=== PATIENT | female | born 1970 | race Caucasian/White ===

== ENCOUNTER 2017-03-12 09:18 | Outpatient (CLI) | payer MEDICAID | END 2017-03-12 09:19 | disposition home or self-care (01) | DX: Z13.220 Encounter for screening for lipoid disorders (principal) ==

== ENCOUNTER 2017-09-19 19:52 | Emergency (ER) | payer MEDICAID ==
[2017-09-19 20:30] LABS: BASOPHILS # (AUTO) 0.1 10^3/uL (0.0-0.1); BASOPHILS % (AUTO) 0.5 %; EOSINOPHILS # (AUTO) 0.4 10^3/uL (0.0-0.7); EOSINOPHILS % (AUTO) 2.5 %; HCT - HEMATOCRIT 42.2 % (37.0-47.0); HGB - HEMOGLOBIN 14.1 g/dL (12.0-16.0); LYMPHOCYTES # (AUTO) 2.7 10^3/uL (1.5-3.5); LYMPHOCYTES % (AUTO) 19.2 %; MEAN CORPUSCULAR HEMOGLOBIN 28.2 pg (27.0-31.0); MEAN CORPUSCULAR HGB CONC 33.5 g/dL (32.0-36.0); MEAN CORPUSCULAR VOLUME 84.2 fL (81.0-99.0); MONOCYTES # (AUTO) 0.7 10^3/uL (0.0-1.0); MONOCYTES % (AUTO) 4.8 %; NEUTROPHILS # (AUTO) 10.4 10^3/uL (1.5-6.6); RED BLOOD COUNT 5.01 10^6/uL (4.20-5.40); RED CELL DISTRIBUTION WIDTH 13.8 % (12.0-15.0); UNCORRECTED WHITE BLOOD COUNT 14.2 x10^3/uL; WHITE BLOOD COUNT 14.2 x10^3/uL (4.8-10.8)
--- NOTE | 2017-09-19 20:39 | ED Physician Documentation ---
PD HPI CHEST PAIN - Stated complaint Stated Complaint: CHEST PX - Chief complaint Chief Complaint: Cardiac - History obtained from History obtained from: Patient, Family - History of Present Illness Timing - onset: How many hours ago (1-2 hours [employer]) Timing - onset during: Light activity Timing - details: Abrupt onset Pain level max: 10 Pain level now: 2 Quality: Sharp Location: Other (across lower chest) Radiation: Back Improved by: Other medication (albuterol MDI (spouse's MDI), which seemed to help significantly) Worsened by: Inspiration Associated symptoms: Shortness of air. No: Diaphoresis, Nausea, Vomiting, Palpitations, Cough Similar symptoms before: Has not had sx before Recently seen: Not recently seen - Additional information Additional information: has had approximately 1-2 weeks of sore throat, ROLFER cough, chest congestion. Tonight, approximately 1-2 hours [employer], sudden onset of sharp chest pain across lower chest with dyspnea. Improved significantly en route to ED, particularly after using spouse's albuterol MDI. Review of Systems Constitutional: denies: Fever, Chills, Sweats Throat: reports: Sore throat Cardiac: reports: Chest pain / pressure. denies: Palpitations, Pedal edema, Calf pain Respiratory: reports: Dyspnea, Cough GI: reports: Reviewed and negative PD PAST MEDICAL HISTORY - Past Medical History Past Medical History: No - Past Surgical History Past Surgical History: No - Present Medications Home Medications: Ambulatory Orders Medication Instructions Recorded Confirmed Albuterol Sulf [Ventolin Hfa 1 - 2 puffs INH Q4HR PRN #1 inhaler 09/20/17 Inhaler] - Allergies Allergies/Adverse Reactions: Allergies Allergy/AdvReac Type Severity Reaction Status Date / Time No Known Drug Allergies Allergy Verified 09/19/17 20:02 - Living Situation Living Situation: reports: With spouse/s.o. Living Arrangement: reports: At home PD ED PE NORMAL - Vitals Vital signs reviewed: Yes - General General: Alert and oriented X 3, No acute distress, Well developed/nourished - HEENT HEENT: Moist mucous membranes - Neck Neck: Supple, no meningeal sign - Cardiac Cardiac: RRR, No murmur, No gallop, No rub - Respiratory Respiratory: No respiratory distress, Clear bilaterally - Abdomen Abdomen: Soft, Non tender - Extremities Extremities: No edema - Neuro Neuro: Alert and oriented X 3 Results - Vitals Vitals: Vital Signs - 24 hr 09/19/17 09/19/17 09/19/17 19:59 21:43 22:28 Temperature 36.7 C Heart Rate 80 74 78 Respiratory 14 12 20 Rate Blood Pressure 141/91 H 135/75 H 127/77 O2 Saturation 97 97 97 09/19/17 09/19/17 09/20/17 22:32 23:39 00:15 Temperature 37.0 C 36.6 C Heart Rate 79 76 Respiratory 17 16 Rate Blood Pressure 132/83 H 136/72 H O2 Saturation 98 98 Oxygen O2 Source Room air - EKG (time done) No standard instances Rate: Rate (enter#) (90) Rhythm: NSR [place]: Normal Intervals: Normal AR QRS: Normal Ischemia: Normal ST segments, T wave inversion (II, III, aVF, V4-V6) - Labs Labs: Laboratory Tests 09/19/17 09/19/17 09/19/17 20:23 20:23 20:23 WBC 14.2 H RBC 5.01 Hgb 14.1 Hct 42.2 MCV 84.2 MCH 28.2 MCHC 33.5 RDW 13.8 Plt Count 329 MPV 8.0 Neut # 10.4 H Lymph # 2.7 Mclennan # 0.7 Eos # 0.4 Baso # 0.1 Absolute Nucleated RBC 0.01 Nucleated RBC % 0.0 D-Dimer Sodium 140 Potassium 3.9 Chloride 101 Carbon Dioxide 27 Anion Gap 12.0 BUN 14 Creatinine 0.7 Estimated GFR (MDRD) 90 Glucose 136 H Calcium 9.5 Total Bilirubin 0.2 AST 147 H ALT 103 H Alkaline Phosphatase 80 Troponin I < 0.04 Total Protein 8.0 Albumin 4.3 Globulin 3.7 Albumin/Globulin Ratio 1.2 Lipase 39 09/19/17 20:23 WBC RBC Hgb Hct MCV MCH MCHC RDW Plt Count MPV Neut # Lymph # Mclennan # Eos # Baso # Absolute Nucleated RBC Nucleated RBC % D-Dimer 398.2 H Sodium Potassium Chloride Carbon Dioxide Anion Gap BUN Creatinine Estimated GFR (MDRD) Glucose Calcium Total Bilirubin AST ALT Alkaline Phosphatase Troponin I Total Protein Albumin Globulin Albumin/Globulin Ratio Lipase - Rads (name of study) chest xray Radiology: Prelim report reviewed, See rad report CT chest (PE study) Radiology: Prelim report reviewed, See rad report PD MEDICAL DECISION MAKING - ED course Complexity details: reviewed results, re-evaluated patient, considered differential, d/w patient Departure - Departure Disposition: Home, Self Care Clinical Impression: Chest pain Condition: Good Instructions: ED Chest Pain Atypical Unkn Cause Follow-Up: Trista Myrick ARNP [Primary Care Provider] - Prescriptions: Albuterol Sulf [Ventolin Hfa Inhaler] 1 - 2 puffs INH Q4HR PRN #1 inhaler PRN Reason: Shortness Of Air/Wheezing Discharge Date/Time: 09/20/17 00:16
[2017-09-19 20:44] LABS: ALBUMIN/GLOBULIN RATIO 1.2 (1.0-2.2); BILIRUBIN,TOTAL 0.2 mg/dL (0.2-1.0); CALCIUM 9.5 mg/dL (8.5-10.3); CREATININE 0.7 mg/dL (0.4-1.0); POTASSIUM 3.9 mmol/L (3.5-5.0)
--- NOTE | 2017-09-19 21:02 | XRAY Preliminary Report ---
Exam: XR CHEST 1 VIEW IMPRESSION: Normal single view chest. [facility] SITE ID: [id number]
--- NOTE | 2017-09-19 21:04 | XRAY Report ---
EXAM: CHEST RADIOGRAPHY EXAM DATE: 09/19/2017 08:38 PM. CLINICAL HISTORY: Chest pain. COMPARISON: 09/19/2017 chest x-ray. TECHNIQUE: 1 view. FINDINGS: Lungs/Pleura: No focal opacities evident. No pleural effusion. No pneumothorax. Mediastinum: Within exam limitations, the cardiomediastinal contour is normal. Other: None. IMPRESSION: Normal single view chest. [facility] Referring Provider Line: [phone] SITE ID: [id number]
[2017-09-19] MEDS ORDERED: IOPAMIDOL-300 100 ML VIAL ONE (22:41)
[2017-09-19] MEDS ORDERED: IOPAMIDOL-300 100 ML VIAL IVP ONE (23:16)
--- NOTE | 2017-09-19 23:35 | CT Preliminary Report ---
Exam: CT CHEST ANGIO (PE) IMPRESSION: 1. No pulmonary emboli seen. 2. Heart appears mildly enlarged. Slight hazy opacities in the lungs of uncertain significance. Inter stitial edema not excluded. [facility] SITE ID: [id number]
--- NOTE | 2017-09-19 23:38 | CT Report ---
EXAM: CT ANGIOGRAM CHEST EXAM DATE: 09/19/2017 11:20 PM. CLINICAL HISTORY: Chest pain, dyspnea, elevated d-dimer. COMPARISON: None. TECHNIQUE: Routine helical imaging was performed through the chest in the pulmonary arterial phase. I V Contrast: Nonionic. Reconstructions: Coronal 3-D MIP reconstructions.Sagittal and coronal. In accordance with CT protocol optimization, one or more of the following dose reduction techniques w ere utilized for this exam: automated exposure control, adjustment of mA and/or KV based on patient s ize, or use of iterative reconstructive technique. FINDINGS: Pulmonary Arteries: Diagnostic quality: Adequate through the segmental arteries. No evidence for acute or chronic pulmona ry emboli. No evidence of right heart strain. Lungs/Pleura: Mild hazy opacities in the lungs. Interstitial edema not excluded. No abdulkadir alveolar co nsolidation or pleural effusion. No pneumothorax. Mediastinum: Mild cardiomegaly. No lymphadenopathy. Thoracic Aorta: Unremarkable. Upper Abdomen: Calcified stones in the gallbladder. No obvious cholecystitis. Spleen is not completel y imaged. There may be mild splenomegaly. Other: None. IMPRESSION: 1. No pulmonary emboli seen. 2. Heart appears mildly enlarged. Slight hazy opacities in the lungs of uncertain significance. Inter stitial edema not excluded. [facility] Referring Provider Line: [phone] SITE ID: [id number]
[2017-09-20 00:16] VITALS: BP 136/72
== END 2017-09-20 00:16 | disposition home or self-care (01) ==
LOC: ED 19:52
DX: R07.9 Chest pain, unspecified (principal)
CPT/HCPCS: 36415; 71010; 71275; 80053; 83690; 84484; 85025; 85379; 93005; 99284; Q9967

== ENCOUNTER 2017-09-23 10:30 | Outpatient (CLI) | payer MEDICAID | END 2017-09-23 10:31 | disposition home or self-care (01) | LOC: LAB.R 10:30 | PROVIDERS: ATTEND Nurse Practitioner Family | DX: J02.9 Acute pharyngitis, unspecified (principal) | CPT/HCPCS: 87070 ==

== ENCOUNTER 2017-10-13 12:56 | Outpatient (CLI) | payer MEDICAID ==
[2017-10-13 18:28] LABS: BASOPHILS % (AUTO) 0.4 %; EOSINOPHILS # (AUTO) 0.3 10^3/uL (0.0-0.7); EOSINOPHILS % (AUTO) 3.6 %; HCT - HEMATOCRIT 39.1 % (37.0-47.0); HGB - HEMOGLOBIN 12.9 g/dL (12.0-16.0); LYMPHOCYTES # (AUTO) 2.7 10^3/uL (1.5-3.5); LYMPHOCYTES % (AUTO) 37.2 %; MEAN CORPUSCULAR HEMOGLOBIN 28.5 pg (27.0-31.0); MEAN CORPUSCULAR HGB CONC 33.1 g/dL (32.0-36.0); MEAN CORPUSCULAR VOLUME 86.1 fL (81.0-99.0); MEAN PLATELET VOLUME 8.9 fL (7.9-10.8); MONOCYTES # (AUTO) 0.3 10^3/uL (0.0-1.0); MONOCYTES % (AUTO) 4.3 %; NEUTROPHILS # (AUTO) 3.9 10^3/uL (1.5-6.6); NEUTROPHILS % (AUTO) 54.5 %; RED BLOOD COUNT 4.54 10^6/uL (4.20-5.40); RED CELL DISTRIBUTION WIDTH 13.9 % (12.0-15.0); UNCORRECTED WHITE BLOOD COUNT 7.2 x10^3/uL; WHITE BLOOD COUNT 7.2 x10^3/uL (4.8-10.8)
[2017-10-13 19:14] LABS: ALBUMIN/GLOBULIN RATIO 1.4 (1.0-2.2); BILIRUBIN,TOTAL 0.4 mg/dL (0.2-1.0); CALCIUM 9.3 mg/dL (8.5-10.3); CREATININE 0.8 mg/dL (0.4-1.0); POTASSIUM 3.4 mmol/L (3.5-5.0); TOTAL PROTEIN 7.6 g/dL (6.7-8.2)
[2017-10-13 19:44] LABS: MONO NEG QC NEGATIVE (Negative); MONO POS QC POSITIVE (Positive)
== END 2017-10-13 12:57 | disposition home or self-care (01) ==
LOC: LAB.F 12:56
PROVIDERS: ATTEND Nurse Practitioner Family
DX: R53.83 Other fatigue (principal); R53.1 Weakness
CPT/HCPCS: 36415; 80053; 85025; 86308

== ENCOUNTER 2020-01-18 15:17 | Outpatient (CLI) | payer MEDICAID | END 2020-01-18 23:59 | disposition home or self-care (01) | LOC: LAB.R 15:17 | PROVIDERS: ATTEND Physician Assistant | DX: J02.9 Acute pharyngitis, unspecified (principal) | CPT/HCPCS: 87070 ==

== ENCOUNTER 2022-08-09 07:37 | Outpatient (CLI) | payer MEDICAID ==
[2022-08-09 15:31] LABS: BASOPHILS % (AUTO) 0.5 %; EOSINOPHILS # (AUTO) 0.3 10^3/uL (0.0-0.7); EOSINOPHILS % (AUTO) 4.2 %; HCT - HEMATOCRIT 41.5 % (37.0-47.0); HGB - HEMOGLOBIN 13.4 g/dL (12.0-16.0); LYMPHOCYTES # (AUTO) 2.5 10^3/uL (1.5-3.5); LYMPHOCYTES % (AUTO) 40.8 %; MEAN CORPUSCULAR HEMOGLOBIN 28.7 pg (27.0-31.0); MEAN CORPUSCULAR HGB CONC 32.3 g/dL (32.0-36.0); MEAN CORPUSCULAR VOLUME 88.9 fL (81.0-99.0); MEAN PLATELET VOLUME 10.4 fL (7.9-10.8); MONOCYTES # (AUTO) 0.4 10^3/uL (0.0-1.0); MONOCYTES % (AUTO) 6.3 %; PLT - PLATELET COUNT 342 10^3/uL (130-450); RED BLOOD COUNT 4.67 10^6/uL (4.20-5.40); RED CELL DISTRIBUTION WIDTH 13.8 % (12.0-15.0); WHITE BLOOD COUNT 6.2 x10^3/uL (4.8-10.8)
[2022-08-09 15:53] LABS: ALBUMIN/GLOBULIN RATIO 1.2 (1.0-2.2); ALKALINE PHOSPHATASE 56 IU/L (42-121); ALT ALANINE AMINOTRANSFERASE 28 IU/L (10-60); AST ASPARTATE AMINOTRANSFERASE 16 IU/L (10-42); BILIRUBIN,TOTAL 0.6 mg/dL (0.2-1.0); BUN - BLOOD UREA NITROGEN 12 mg/dL (6-20); CALCIUM 9.2 mg/dL (8.5-10.3); CARBON DIOXIDE - CO2 29 mmol/L (21-32); CHLORIDE 105 mmol/L (101-111); CHOL/HDL RATIO 5.5 (<4.4); CHOLESTEROL 172 mg/dL; CREATININE 0.7 mg/dL (0.4-1.0); GFR - MDRD 89 (>89); GLUCOSE 126 mg/dL (70-100); HDL CHOLESTEROL 31 mg/dL; LDL CHOLESTEROL,CALCULATED 97 mg/dL; LDL/HDL RATIO 3.1 (<4.4); SODIUM 140 mmol/L (135-145); TOTAL PROTEIN 7.3 g/dL (6.7-8.2); TRIGLYCERIDES 222 mg/dL; VLDL CHOLESTEROL 44 mg/dL
[2022-08-09 16:02] LABS: THYROID STIMULATING HORMONE 2.02 uIU/mL (0.34-5.60)
[2022-08-10 03:08] LABS: HCV AB <0.1 s/co ratio (0.0-0.9)
== END 2022-08-09 07:38 | disposition home or self-care (01) ==
LOC: LAB.S 07:37
PROVIDERS: ATTEND Registered Nurse
DX: Z00.00 Encounter for general adult medical examination without abnormal findings (principal); Z13.228 Encounter for screening for other metabolic disorders; Z13.29 Encounter for screening for other suspected endocrine disorder; Z13.0 Encounter for screening for diseases of the blood and blood-forming organs and certain disorders involving the immune mechanism
CPT/HCPCS: 36415; 80053; 80061; 83721; 84443; 85025; 86803

== ENCOUNTER 2022-09-26 08:00 | Outpatient (CLI) | payer MEDICAID ==
--- NOTE | 2022-09-26 11:45 | XRAY Report ---
PROCEDURE: Chest 2 View X-Ray INDICATIONS: PRODUCTIVE COUGH TECHNIQUE: 2 views of the chest were acquired. COMPARISON: Chest x-ray 09/19/2017 FINDINGS: Surgical changes and devices: None. Lungs and pleura: No pleural effusions or pneumothorax. Lungs are clear. Mediastinum: Mediastinal contours are normal. Heart size is normal. Bones and chest wall: No suspicious bony abnormalities. Soft tissues appear unremarkable. IMPRESSION: No acute pulmonary process. Reviewed by: Lorna Carcamo MD on 09/26/2022 11:44 AM [facility] Approved by: Lorna Carcamo MD on 09/26/2022 11:44 AM [facility] Station ID: [id number]
== END 2022-09-26 08:01 | disposition home or self-care (01) ==
LOC: DI.S 08:00
PROVIDERS: ATTEND Physician Assistant Medical
DX: J02.9 Acute pharyngitis, unspecified (principal)
CPT/HCPCS: 87070

== ENCOUNTER 2023-02-04 07:26 | Outpatient (CLI) | payer MEDICAID ==
[2023-02-04 15:04] LABS: THYROID STIMULATING HORMONE 2.46 uIU/mL (0.34-5.60)
[2023-02-04 15:15] LABS: FOLATE 21.79 ng/mL (5.90 - >24.8)
== END 2023-02-04 07:27 | disposition home or self-care (01) ==
LOC: LAB.S 07:26
PROVIDERS: ATTEND Psychiatry & Neurology Neurology
DX: R20.2 Paresthesia of skin (principal)
CPT/HCPCS: 36415; 82607; 82746; 84443

== ENCOUNTER 2023-04-11 13:21 | Outpatient (CLI) | payer MEDICAID ==
[~2023-04-11 13:21] MED LIST: GADOBUTROL 15 MMOL/15 ML VIAL ONE
[2023-04-11] MEDS ORDERED: GADOBUTROL 15 MMOL/15 ML VIAL IVP ONE (14:55)
--- NOTE | 2023-04-11 17:13 | MRI Report ---
PROCEDURE: BRAIN W/WO INDICATIONS: PARAESTHESIAS CONTRAST: GADAVIST 10.8 ML TECHNIQUE: Noncontrast axial T1 spin echo, axial T2 fast spin echo, sagittal and axial FLAIR, coronal T2 fast sp in echo, axial gradient echo, axial diffusion and ADC through the brain. After the administration of contrast, axial and coronal T1 spin echo with fat saturation through the brain. COMPARISON: None. FINDINGS: Image quality: Excellent. CSF spaces: Basal cisterns are patent. No extra-axial fluid collections. Ventricles are normal in size and shape. Brain: No midline shift. No intracranial bleeds or masses. No abnormal intracranial enhancement. There is cerebral volume loss for age. There is periventricular white matter chronic small vessel is chemic change. The brainstem appears normal. Diffusion-weighted images demonstrate no acute ischemi c insults. No chronic ischemic insults. Normal intravascular flow voids are present. Skull and face: Calvarial marrow is normal in signal. Orbits appear normal. Sinuses: Sinuses and mastoids appear clear. IMPRESSION: 1. No acute intracranial process. Reviewed by: Lorna Carcamo MD on 04/11/2023 5:12 PM PDT Approved by: Lorna Carcamo MD on 04/11/2023 5:12 PM PDT Station ID: [id number]
== END 2023-04-11 13:22 | disposition home or self-care (01) ==
LOC: DI 13:21
PROVIDERS: ATTEND Psychiatry & Neurology Neurology
DX: R20.2 Paresthesia of skin (principal)
CPT/HCPCS: 70553; A9585

== ENCOUNTER 2023-05-26 10:02 | Outpatient (CLI) | payer MEDICAID ==
--- NOTE | 2023-05-26 11:42 | SLEEP CARE CONSULTATION ---
Information from patient questionnaire entered by Kuldeep Kan. I have reviewed and concur with the information entered by Kuldeep Kan. This document represents the service I personally performed and the decisions made by me, Liana Wade MD, [facility] [place]. History of Present Illness Service Date and Time: 05/26/2023 1002 Reason for Visit: New patient Chief Complaint: reports: Unrefreshed sleep, Snoring, Excessive daytime sleepiness, Observed pauses in breathing, Fatigue, Frequent awakenings at night Date of Onset: 3YRS Usual bedtime: 1030PM Time it takes to fall asleep: 30MIN Snores at night: Yes Observed to quit breathing while asleep: Yes Sleeps alone due to snoring: No Number of times waking at night: 3-6 Reasons for waking at night: reports: Snoring, Gasping for air, Bathroom Toss, Turn, or Twitch while sleeping: Yes Recalls having dreams: No Usually gets out of bed at: 730AM Feels refreshed in the morning: No Morning headache: No Sleepy or fatigued during the day: Yes Ever fallen asleep while driving: No Takes day naps: Yes Dreams during day naps: No Additional HPI information: I have the pleasure of seeing Ms. Weaver today regarding the possibility of her having obstructive sleep apnea. As you know, she is a 52-year-old lady who complains of loud snore, observed apneas, frequent awakenings, unrefreshed sleep, persistent fatigue, and excessive daytime sleepiness. Her neurologist recommends a sleep study. The patient tells me that she normally goes to bed around 10:30 pm, and it takes her approximately 30 minutes to fall asleep. She has been told that she snores loudly and irregularly at night. She has also been observed to stop breathing in her sleep. Her can still sleep in the same bed. She can recall waking up on the average of 3 - 6 times during the night. Most of the time she wakes up because of having to use the bathroom. She has awakened occasionally because of her own snoring, choking, and having to gasp for air. There is a lot of tossing and turning in her sleep. No somniloquy (sleep talking) or somnambulism (sleep walking). Generally, there is no recollection of dreams. In the morning she usually gets up out of the bed around 7:30 a.m. not feeling refreshed nor rested. She usually does not have a morning headache. During the day she complains of feeling sleepy and fatigued. Her score on [place] Sleepiness Scale is 18 out of 24. She has never fallen asleep while driving nor has had any accident due to sleepiness. She usually takes naps during the day. She has never had sleep paralysis, experienced crys plexy but complains of symptoms of restless leg syndrome. She reports having impaired concentration during the day. - Parasomnia Symptoms Ever been unable to move upon waking from sleep: No Walks in sleep: No Talks in sleep: No Ever acted out dreams in sleep: No Ever felt weak in the knees when startled or emotional: No Bothered by creepy, crawly, restless sensations in legs: Yes Problems with memory or concentration: Yes Subjective Initial [place] Sleepiness Scale score: 23 (05/26/23) Social History The patient's occupation is a TEACHER. Patient is and lives in [place]. Have you smoked in the past 12 months: No Alcohol use: No Caffeine use: Yes Caffeine amount and frequency: 24OZ DAILY Family History Family history of sleep disordered breathing: No Allergies and Home Medications Known drug allergies: No Drug allergies reviewed: Yes Home medication list reviewed: Yes Allergy and home medication list: Allergies No Known Drug Allergies Allergy (Verified 05/23/23 08:34) Review of Systems Weight gain over past 5 years: 50 Cardiovascular: reports: leg or foot swelling Respiratory: reports: shortness of breath Gastrointestinal: reports: diarrhea Urinary: reports: frequency, urgency Neurological: reports: headaches Ear/Nose/Throat: reports: dry mouth/throat, wisdom teeth removed Endocrine: reports: sluggishness, too hot or cold, excessive thirst, increased urination, unexplained weakness Musculoskeletal: reports: joint pain, joint swelling, muscle pain or cramping Physical Exam Vital signs obtained and entered by: KULDEEP Ha MA Blood Pressure: 124/78 (LEFT ARM) Cuff size: regular Heart Rate: 81 O2 Saturation: 97 Height: 5 ft 5 in Weight: 250 lb Body Mass Index: 41.5 BMI Classification: Morbidly Obese Neck circumference: 16.75 Mood/affect: Normal. HEENT: No craniofacial malformation Nostrils: patent to airflow Turbinates: normal Septum: midline Mouth and throat: narrow oropharynx Soft palate: long Hard palate: normal Uvula: normal Uvula visualization: 50% Mallampati Class II Tongue: normal in size Tonsils: small Chin and jaw: normal size and position Neck: normal w/o lymphadenopathy or thyromegaly Heart: regular rate and rhythm Lungs: clear bilaterally Extremities: no edema or clubbing Neurologic: intact Impression and Plan IMPRESSION: 1. Obstructive Sleep Apnea-Hypopnea Syndrome, as evident by history of loud and irregular snoring, observed cessation of breath while asleep, frequent awakenings during the night, unrefreshed sleep, cognitive impairment, and daytime hypersomnolence. Narrow oropharynx and obesity are common predisposing factors for obstructive sleep apnea-hypopnea syndrome. I recommend proceeding to polysomnography to confirm the diagnosis and to assess severity. If she has significant sleep disordered breathing, a manual CPAP titration study will also be performed to find the optimal treatment pressure. I informed the patient of what the sleep studies involve and after some discussion, she agreed to proceed. Plan: 1. Schedule polysomnography +/- manual CPAP titration study and return in 1 to 2 weeks after the study to discuss result and initiate therapy. 2. Avoid long distance driving or when feeling sleepy. 3. Avoid alcohol, sedatives, and muscle relaxants around bedtime. 4. Attempt to lose weight. Counseling Topics: Weight control Follow up with Sleep Care in: 1-2 months Visit Type: In Office Time Spent with Patient (minutes): 15 Provider Statement: I spent 100% of the Face to Face Visit with the patient with greater than 50% spent counseling the patient and coordination of care.
[2023-05-26 11:43] VITALS: BP 124/78
== END 2023-05-26 10:03 | disposition home or self-care (01) ==
LOC: SC 10:02
PROVIDERS: ATTEND Internal Medicine Pulmonary Disease
DX: G47.10 Hypersomnia, unspecified (principal); R44.8 Other symptoms and signs involving general sensations and perceptions; R41.89 Other symptoms and signs involving cognitive functions and awareness; R06.83 Snoring; G47.8 Other sleep disorders; R06.81 Apnea, not elsewhere classified; E66.01 Morbid (severe) obesity due to excess calories; Z68.41 Body mass index [BMI] 40.0-44.9, adult
CPT/HCPCS: 99202; 99212

== ENCOUNTER 2023-06-22 19:34 | Outpatient (CLI) | payer MEDICAID | END 2023-06-22 19:35 | disposition home or self-care (01) | LOC: SC 19:34 | PROVIDERS: ATTEND Internal Medicine Pulmonary Disease | DX: G47.33 Obstructive sleep apnea (adult) (pediatric) (principal) | CPT/HCPCS: 95810 ==

== ENCOUNTER 2023-07-16 15:58 | Outpatient (CLI) | payer MEDICAID ==
--- NOTE | 2023-07-16 15:57 | SLEEP CARE CONSULTATION ---
Information from patient questionnaire entered by Yenny Kan. I have reviewed and concur with the information entered by Yenny Kan. This document represents the service I personally performed and the decisions made by me, Tori Dodd ARNP. History of Present Illness Service Date and Time: 07/16/2023 1540 Initial [place] Sleepiness Scale score: 23 (05/26/23) Current [place] Sleepiness Scale score: 19 (07/16/23) Additional HPI information: AMANDA OTT returns via video telehealth visit for follow up and results of the recently performed polysomnography. Her sleep study showed moderate obstructive sleep apnea with an average AHI of 28.2 and savage oxygen saturation of 76%. I explained the pathophysiology behind obstructive sleep apnea. We then spent quite a bit of time discussing different treatment options. For mild obstructive sleep apnea, surgery and oral appliance are alternatives to nasal CPAP therapy but in moderate or severe cases, nasal CPAP is the most effective and reliable treatment. I reviewed the impact of weight changes on sleep apnea and strongly recommended losing weight. After some discussion, the patient opted to go with the nasal CPAP therapy. Nasal autoCPAP set at 4-15 cmH20 will be ordered with rationale explained. A manual titration study will be ordered if unable to find optimal pressure with office adjustments. I explained how CPAP machine works and what to expect when using the machine. Using CPAP every night in order to get used to it was emphasized. Patient advised to put CPAP mask on before getting into bed so as not to fall asleep without CPAP. To assist acclimation to CPAP use, it could also be used for a short time during day while reading or watching TV. The patient was instructed to call the CPAP supplier to discuss any mechanical problem that may occur. If the mask given is uncomfortable or is difficult to keep on through the night even with adjustment, contact the CPAP supplier as many will replace with another mask style if notified before 30 days. If snoring or perceives is not getting enough air or too much air from the machine, notify this office. Patient does not drink alcohol. Patient was cautioned about risks of drowsy driving unt il sleepiness symptoms resolve. Patient denies drowsy driving. Sleep Study - Results Type of Sleep Study: Polysomnography (COMPLETED 06/22/23) Polysomnography/Home Sleep Study results: IMPRESSION: The quality of the study is good. The patient had reduced sleep efficiency due to frequent awakenings during the night. Despite moderate sleep fragmentation, the sleep architecture was relatively normal. Respiratory monitoring showed moderate obstructive sleep apnea-hypopnea (AHI = 28.2) associated with frequent arousals, oxyhemoglobin desaturation and moderate hypoxia (savage oxygen saturat ion of 76%). The respiratory events occurred independently of sleep stage and body position (supine AHI = 34.6; non-supine = 26.84). Snore was moderate to loud in intensity. There was no significant periodic leg movement of sleep. Cardiac rhythm was normal sinus rhythm without significant arrhythmia. No abnormal behavior (parasomnia) observed during the night. Allergies and Home Medications Known drug allergies: No Drug allergies reviewed: Yes Home medication list reviewed: Yes Allergy and home medication list: Allergies No Known Drug Allergies Allergy (Verified 07/15/23 11:52) Home Medications Medication Instructions Recorded Confirmed Last Taken Type Albuterol Sulf [Ventolin Hfa 1 - 2 puffs INH Q4HR PRN #1 inhaler 09/20/17 07/16/23 Unknown Rx Inhaler] Empagliflozin [Jardiance] See Rx Instructions .ROUTE .COMPLEX 07/16/23 07/16/23 Unknown History Metformin HCl See Rx Instructions .ROUTE .COMPLEX 07/16/23 07/16/23 Unknown History Review of Systems Review of systems same as previous: Yes (no changes) Physical Exam Vital signs obtained and entered by: YENNY Ha MA Blood Pressure: 131/87 (PER PT) Heart Rate: 77 (PER PT) Height: 5 ft 4 in (PER PT) Weight: 240 lb (PER PT) Body Mass Index: 41.1 BMI Classification: Morbidly Obese Impression and Plan 1. Obstructive Sleep Apnea-Hypopnea Syndrome, moderate, with lowest oxygen saturation of 76%. Obviously this is the cause of the patients symptoms of unrefreshed sleep, and excessive daytime sleepiness. As mentioned above, the patient will be started on nasal autoCPAP therapy with pressure set at 4-15 cmH2 O. A manual titration study will be completed if unable to find optimal treatment pressure with office adjustments. Compliance guidelines also reviewed. A copy of compliance guidelines will be given for reference at check out. She was advised to elevate her head to reduce apneas until able to use a CPAP. She voiced understanding. 2. Hypoxemia, moderate, with a savage oxygen saturation of 76% and 19.5 minutes spent under 90%. Her baseline oxygen saturation was normal with an average oxyg en saturation of 93%. 3. Obesity, unspecified. Currently patients BMI is 41.1. Obesity increases the risk of apnea, CPAP pressure requirements and overall health risks especially cardiovascular and diabetes. Thus patient is advised to lose weight. * Nasal auto CPAP therapy, pressure at 4-15 cm H2O. * Attempt to lose weight. * Avoid alcohol consumption near bedtime. * Avoid supine sleep until using CPAP. * The patient is again cautioned about driving until sleepiness completely resolves. * Return one month after CPAP obtained. I will assess response to therapy and compliance at that time. Counseling Topics: Weight loss health impact Prescriptions: Auto CPAP Visit Type: Telehealth Video Video Type: Doximity Patient Location: Home Location of Provider: Office Patient agrees and consents to this telehealth visit type: Yes Patient agrees to have their insurance billed: Yes Time Spent with Patient (minutes): 23 Provider Statement: I spent 100% of the Telehealth Video Call with the patient with greater than 50% spent counseling the patient and coordination of care.
[2023-07-16 16:39] VITALS: BP 131/87
== END 2023-07-16 15:59 | disposition home or self-care (01) ==
LOC: SC 15:58
PROVIDERS: ATTEND Nurse Practitioner Family
DX: G47.33 Obstructive sleep apnea (adult) (pediatric) (principal); R09.02 Hypoxemia; E66.8 Other obesity; Z68.41 Body mass index [BMI] 40.0-44.9, adult

== ENCOUNTER 2023-10-31 15:04 | Outpatient (CLI) | payer MEDICAID ==
--- NOTE | 2023-10-31 15:53 | Sleep Patient Instructions ---
Sleep Center Visit Summary - Patient Visit Information Reason for Visit: First Compliance with new CPAP - Patient Instructions Additional Instructions: You were here for follow up of CPAP therapy. You will be continued on CPAP therapy with pressure at 10-12 cmH2O. Please let us know if the pressure change is uncomfortable and we can make further adjustments of the pressure. You should follow up with sleep care in 1-2 months. You may contact us sooner for any questions or concerns. - Clinic Information Contact: [facility] [address] [place] [address] [email or web address] T: [phone]
--- NOTE | 2023-10-31 15:57 | SLEEP CARE CONSULTATION ---
Information from patient questionnaire entered by Kuldeep Kan. I have reviewed and concur with the information entered by Kuldeep Kan. This document represents the service I personally performed and the decisions made by me, Tori Dodd ARNP. History of Present Illness Service Date and Time: 10/31/2023 1504 Previous diagnosis: Moderate, Obstructive Sleep Apnea-Hypopnea Syndrome AHI: 28.2 (06/2023) Reason for follow up: first compliance Equipment type: CPAP (RESMED Airsense 11; s/u111/2022, NEED MACHINE) Equipment obtained from: [employer] (getting supplies) Mask style: Nasal Mask brand: Resmed ([id number]) Backup mask available: No (will keep old mask when replaced) Last cushion change: 1 month + Type of Sleep Study: Polysomnography (COMPLETED 06/22/23) HPI additional information: AMANDA OTT was diagnosed to have moderate, AHI 28.2, obstructive sleep apnea-hypopnea syndrome and returned today for CPAP therapy first compliance follow-up. Sleep Study - Results Type of Sleep Study: Polysomnography (COMPLETED 06/22/23) CPAP Compliance Data - Data Reviewed with Patient Average duration of nightly device use: 6 hours 28 minutes Compliance rate %: 87 (29/30 days used) Current pressure setting (cmH2O): 4-15 (median 7.6, avg 10, max 11.4) Average residual AHI: 1.5 Central apnea: 0 Obstructive apnea: 1.1 Average large leak: 2.5 L/min Subjective Missed days of use due to: reports: family emergency, illness Patient concerns: reports: mask discomfort, condensation in mask/hose, nasal congestion (from her cold). denies: aerophagia, air blowing in eyes, mask leak noise, dry mouth, nose, throat, epistaxis Observed to snore while using device: No Current pressure setting perceived as: comfortable On therapy, patient: reports: sleeping better, awakening more refreshed, being more awake and alert during the day, more rested overall. denies: drowsiness while driving Initial [place] Sleepiness Scale score: 23 (05/26/23) Current [place] Sleepiness Scale score: 23 (10/31/23) Allergies and Home Medications Known drug allergies: No Drug allergies reviewed: Yes Home medication list reviewed: Yes (Metformin) Allergy and home medication list: Allergies No Known Drug Allergies Allergy (Verified 10/30/23 10:47) Home Medications Medication Instructions Recorded Confirmed Last Taken Type Albuterol Sulf [Ventolin Hfa 1 - 2 puffs INH Q4HR PRN #1 inhaler 09/20/17 10/31/23 Unknown Rx Inhaler] Empagliflozin [Jardiance] See Rx Instructions .ROUTE .COMPLEX 07/16/23 10/31/23 Unknown History Metformin HCl See Rx Instructions .ROUTE .COMPLEX 07/16/23 10/31/23 Unknown History Review of Systems Review of systems same as previous: Yes (NO CHANGE) Physical Exam Vital signs obtained and entered by: KULDEEP Ha MA Blood Pressure: 141/91 (RIGHT ARM) Cuff size: regular Heart Rate: 80 O2 Saturation: 98 Height: 5 ft 4 in Weight: 253 lb Body Mass Index: 43.4 BMI Classification: Morbidly Obese Impression and Plan 1. Obstructive Sleep Apnea-Hypopnea Syndrome, moderate, with good treatment compliance and good apnea control. On CPAP therapy, the patient has better sleep quality and is more rested overall. Patient has significant improvement of her sleep apnea with minimal issues. The patients pressure will be changed to autoCPAP 10-12 cmH20 to reflect pressure being used. Patient advised to contact me if pressure change is uncomfortable so that it can be adjusted. Goals for apnea control discussed. Patient's apnea severity and rationale for treatment to reduce apnea, improve sleep quality and reduce cardiovascular and cerebrovascular events was reviewed. 2. Obesity, unspecified. Currently patients BMI is 43.4. Obesity increases the risk of apnea, CPAP pressure requirements and overall health risks especially cardiovascular and diabetes. Thus patient is advised to lose weight. * Change auto CPAP pressure to 10-12 cmH2O * Notify me if snoring with mask or feeling that the pressure is too much or too little * Attempt to lose weight * Call this office if any problems using CPAP * Return for follow up in 1-2 months, or sooner if concerns arise Counseling Topics: Spare mask, Weight loss health impact Follow up with Sleep Care in: 1-2 months Visit Type: In Office Time Spent with Patient (minutes): 23 Provider Statement: I spent 100% of the Face to Face Visit with the patient with greater than 50% spent counseling the patient and coordination of care.
[2023-10-31 16:00] VITALS: BP 141/91; O2SAT 98
== END 2023-10-31 15:05 | disposition home or self-care (01) ==
LOC: SC 15:04
PROVIDERS: ATTEND Nurse Practitioner Family
DX: G47.33 Obstructive sleep apnea (adult) (pediatric) (principal); E66.01 Morbid (severe) obesity due to excess calories; Z68.41 Body mass index [BMI] 40.0-44.9, adult
CPT/HCPCS: 99212; 99213

== ENCOUNTER 2024-01-02 16:50 | Outpatient (CLI) | payer MEDICAID ==
--- NOTE | 2024-01-02 16:47 | SLEEP CARE CONSULTATION ---
Information from patient questionnaire entered by Yenyn Kan. I have reviewed and concur with the information entered by Yenny Kan. This document represents the service I personally performed and the decisions made by , Tori Dodd ARNP. History of Present Illness Service Date and Time: 01/02/2024 1620 Previous diagnosis: Moderate, Obstructive Sleep Apnea-Hypopnea Syndrome AHI: 28.2 (06/2023) Reason for follow up: other (2 MONTH F/U) Equipment type: CPAP (RESMED Airsense 11; s/u 09/2023) Equipment obtained from: [employer] ([employer] supplies) Mask style: Nasal (over the nose) Backup mask available: No Last cushion change: 3 months+ Type of Sleep Study: Polysomnography (COMPLETED 06/22/23) HPI additional information: AMANDA OTT was diagnosed to have moderate, AHI 28.2, obstructive sleep apnea-hypopnea syndrome and returns via video appointment today for CPAP therapy two month follow-up. Sleep Study - Results Type of Sleep Study: Polysomnography (COMPLETED 06/22/23) CPAP Compliance Data - Data Reviewed with Patient Average duration of nightly device use: 8 HRS 17 MINS Compliance rate %: 100 (11/01/23-12/30/23; 60/60 days used) Current pressure setting (cmH2O): 10-12 Average residual AHI: 0.3 Central apnea: 0 Obstructive apnea: 0.1 Hypopnea: 0.1 Average large leak: 0.3 L/min Subjective Patient concerns: reports: mask leak noise. denies: aerophagia, mask discomfort, air blowing in eyes, condensation in mask/hose, nasal congestion, dry mouth, nose, throat, epistaxis Observed to snore while using device: No Current pressure setting perceived as: comfortable On therapy, patient: reports: sleeping better, awakening more refreshed, being more awake and alert during the day, more rested overall. denies: drowsiness while driving Initial [place] Sleepiness Scale score: 23 (05/26/23) Current [place] Sleepiness Scale score: 12 (01/02/24) Allergies and Home Medications Known drug allergies: No Drug allergies reviewed: Yes Home medication list reviewed: Yes (no changes) Allergy and home medication list: Allergies No Known Drug Allergies Allergy (Verified 12/31/23 12:09) Review of Systems Review of systems same as previous: Yes (no changes) Physical Exam Vital signs obtained and entered by: YENNY Ha MA Blood Pressure: 127/85 (PER PT) Height: 5 ft 4 in (PER PT) Weight: 230 lb (PER PT) Body Mass Index: 39.4 BMI Classification: Obese Impression and Plan 1. Obstructive Sleep Apnea-Hypopnea Syndrome, moderate, with good treatment compliance and good apnea control. On CPAP therapy, the patient has better sleep quality and is more rested overall. Patient has significant improvement of her sleep apnea and has no concerns or complaints today. Patient is comfortable using her CPAP and does not feel she needs to come in very soon so we will put her out for 6-month follow-up. Patient's apnea severity and rationale for treatment to reduce apnea, improve sleep quality and reduce cardiovascular and cerebrovascular events was reviewed. 2. Obesity, unspecified. Currently patients BMI is 39.4. Obesity increases the risk of apnea, CPAP pressure requirements and overall health risks especially cardiovascular and diabetes. Thus patient is advised to lose weight. * Continue auto CPAP pressure at 10-12 cmH2O * Notify me if snoring with mask or feeling that the pressure is too much or too little * Attempt to lose weight * Call this office if any problems using CPAP * Return for follow up in 6 months, or sooner if concerns arise Counseling Topics: Weight loss health impact Follow up with Sleep Care in: 6 months Visit Type: Telehealth Video Video Type: Krupa Patient Location: Home Location of Provider: Office Patient agrees and consents to this telehealth visit type: Yes Time Spent with Patient (minutes): 22 Provider Statement: I spent 100% of the Telehealth Video Call with the patient with greater than 50% spent counseling the patient and coordination of care.
[2024-01-02 16:59] VITALS: BP 127/85
== END 2024-01-02 16:51 | disposition home or self-care (01) ==
LOC: SC 16:50
PROVIDERS: ATTEND Nurse Practitioner Family
DX: G47.33 Obstructive sleep apnea (adult) (pediatric) (principal); E66.9 Obesity, unspecified; Z68.39 Body mass index [BMI] 39.0-39.9, adult
CPT/HCPCS: 99212; 99213

== ENCOUNTER 2024-06-11 11:13 | Outpatient (CLI) | payer MEDICAID ==
[2024-06-11 15:10] LABS: BASOPHILS % (AUTO) 0.5 %; EOSINOPHILS # (AUTO) 0.3 10^3/uL (0.0-0.7); EOSINOPHILS % (AUTO) 3.9 %; HCT - HEMATOCRIT 40.2 % (37.0-47.0); HGB - HEMOGLOBIN 12.8 g/dL (12.0-16.0); LYMPHOCYTES # (AUTO) 2.3 10^3/uL (1.5-3.5); LYMPHOCYTES % (AUTO) 35.4 %; MEAN CORPUSCULAR HEMOGLOBIN 28.5 pg (27.0-31.0); MEAN CORPUSCULAR HGB CONC 31.8 g/dL (32.0-36.0); MEAN CORPUSCULAR VOLUME 89.5 fL (81.0-99.0); MEAN PLATELET VOLUME 10.5 fL (7.9-10.8); MONOCYTES # (AUTO) 0.5 10^3/uL (0.0-1.0); MONOCYTES % (AUTO) 7.2 %; NEUTROPHILS # (AUTO) 3.3 10^3/uL (1.5-6.6); NEUTROPHILS % (AUTO) 52.5 %; PLT - PLATELET COUNT 341 10^3/uL (130-450); RED BLOOD COUNT 4.49 10^6/uL (4.20-5.40); RED CELL DISTRIBUTION WIDTH 14.1 % (12.0-15.0); WHITE BLOOD COUNT 6.4 x10^3/uL (4.8-10.8)
[2024-06-11 15:30] LABS: ALBUMIN 4.2 g/dL (3.2-5.5); ALBUMIN/GLOBULIN RATIO 1.6 (1.0-2.2); ALKALINE PHOSPHATASE 47 IU/L (42-121); ALT ALANINE AMINOTRANSFERASE 23 IU/L (10-60); AST ASPARTATE AMINOTRANSFERASE 12 IU/L (10-42); BILIRUBIN,TOTAL 0.4 mg/dL (0.2-1.0); BUN - BLOOD UREA NITROGEN 12 mg/dL (6-20); CALCIUM 9.3 mg/dL (8.5-10.3); CARBON DIOXIDE - CO2 27 mmol/L (21-32); CHLORIDE 106 mmol/L (101-111); CHOLESTEROL 156 mg/dL; CREATININE 0.7 mg/dL (0.6-1.3); GFR - MDRD 88 (>89); GLUCOSE 114 mg/dL (74-104); HDL CHOLESTEROL 31 mg/dL; LDL CHOLESTEROL,CALCULATED 74 mg/dL; LDL/HDL RATIO 2.4 (<4.4); POTASSIUM 3.7 mmol/L (3.5-4.5); SODIUM 140 mmol/L (135-145); TOTAL PROTEIN 6.9 g/dL (6.4-8.9); TRIGLYCERIDES 256 mg/dL; VLDL CHOLESTEROL 51 mg/dL
[2024-06-11 15:43] LABS: THYROID STIMULATING HORMONE 1.53 uIU/mL (0.34-5.60)
[2024-06-11 15:59] LABS: CREATININE,URINE 64.7 mg/dL
[2024-06-11 16:14] LABS: MICROALBUMIN,URINE < 0.7 mg/dL
[2024-06-11 20:31] LABS: ESTIMATED AVERAGE GLUCOSE 134 mg/dL (70-100); HEMOGLOBIN A1c% 6.3 % (4.27-6.07)
== END 2024-06-11 11:14 | disposition home or self-care (01) ==
LOC: LAB.S 11:13
PROVIDERS: ATTEND Registered Nurse
DX: E11.9 Type 2 diabetes mellitus without complications (principal); Z13.228 Encounter for screening for other metabolic disorders; Z13.220 Encounter for screening for lipoid disorders; Z13.29 Encounter for screening for other suspected endocrine disorder; Z13.0 Encounter for screening for diseases of the blood and blood-forming organs and certain disorders involving the immune mechanism
CPT/HCPCS: 36415; 80053; 80061; 82043; 82570; 83036; 83721; 84443; 85025

== ENCOUNTER 2024-07-02 11:16 | Outpatient (CLI) | payer MEDICAID ==
--- NOTE | 2024-07-02 10:31 | SLEEP CARE CONSULTATION ---
Information from patient questionnaire entered by Yenny Kan. I have reviewed and concur with the information entered by Yenny Kan. This document represents the service I personally performed and the decisions made by , Tori Dodd ARNP. History of Present Illness Service Date and Time: 07/02/2024 1020 Previous diagnosis: Moderate, Obstructive Sleep Apnea-Hypopnea Syndrome AHI: 28.2 (06/2023) Reason for follow up: six month Equipment type: CPAP (RESMED Airsense 11; s/u 09/2023) Equipment obtained from: [employer] ([email or web address] supplies) Mask style: Nasal (over the nose) Backup mask available: Yes (old mask) Last cushion change: less than a month Type of Sleep Study: Polysomnography (COMPLETED 06/22/23) HPI additional information: AMANDA OTT was diagnosed to have moderate, AHI 28.2, obstructive sleep apnea-hypopnea syndrome and returns via telephone appointment today for CPAP therapy six month follow-up. Sleep Study - Results Type of Sleep Study: Polysomnography (COMPLETED 06/22/23) CPAP Compliance Data - Data Reviewed with Patient Average duration of nightly device use: 9 HRS 0 MINS Compliance rate %: 99 (12/31/23-06/27/24; 180/180 days used) Current pressure setting (cmH2O): 10-12 Average residual AHI: 0.3 Central apnea: 0 Obstructive apnea: 0.1 Hypopnea: 0.1 Average large leak: 0.3 L/min Subjective Patient concerns: denies: aerophagia, mask discomfort, air blowing in eyes, mask leak noise, condensation in mask/hose, nasal congestion, dry mouth, nose, throat, epistaxis Observed to snore while using device: No Current pressure setting perceived as: comfortable On therapy, patient: reports: sleeping better, awakening more refreshed, being more awake and alert during the day, more rested overall. denies: drowsiness while driving Initial [place] Sleepiness Scale score: 23 (05/26/23) Current [place] Sleepiness Scale score: 12 (07/02/24) Allergies and Home Medications Known drug allergies: No Drug allergies reviewed: Yes Home medication list reviewed: Yes (unsure of any changes) Allergy and home medication list: Allergies No Known Drug Allergies Allergy (Verified 07/02/24 10:10) Review of Systems Review of systems same as previous: Yes (no changes) Physical Exam Vital signs obtained and entered by: YENNY Ha MA Height: 5 ft 5 in (PER PT) Weight: 250 lb (PER PT) Body Mass Index: 41.5 BMI Classification: Morbidly Obese Impression and Plan 1. Obstructive Sleep Apnea-Hypopnea Syndrome, moderate, with good treatment compliance and good apnea control. On CPAP therapy, the patient has better sleep quality and is more rested overall. Patient has significant improvement of their sleep apnea and is satisfied with current CPAP therapy. Patient denies problems with oral dryness, nasal congestion, epistaxis, skin irritation or aerophagia. Patient's apnea severity and rationale for treatment to reduce apnea, improve sleep quality and reduce cardiovascular and cerebrovascular events was reviewed. 2. Obesity, unspecified. Currently patients BMI is 41.5. Obesity increases the risk of apnea, CPAP pressure requirements and overall health risks especially cardiovascular and diabetes. Thus patient is advised to lose weight. * Continue auto CPAP pressure at 10-12 cmH2O * Notify me if snoring with mask or feeling that the pressure is too much or too little * Attempt to lose weight * Call this office if any problems using CPAP * Return for follow up in 12 months, or sooner if concerns arise Counseling Topics: Spare mask, Weight loss health impact Visit Type: Telehealth Phone Video Type: Krupa Patient Location: [facility] Location of Provider: Office Patient agrees and consents to this telehealth visit type: Yes Patient agrees to have their insurance billed: Yes Time Spent with Patient (minutes): 11 Provider Statement: I spent 100% of the Telehealth Phone Call with the patient with greater than 50% spent counseling the patient and coordination of care.
== END 2024-07-02 11:17 | disposition home or self-care (01) ==
LOC: SC 11:16
PROVIDERS: ATTEND Nurse Practitioner Family
DX: G47.33 Obstructive sleep apnea (adult) (pediatric) (principal); E66.01 Morbid (severe) obesity due to excess calories; Z68.41 Body mass index [BMI] 40.0-44.9, adult
CPT/HCPCS: 99442